=== PATIENT | female | born 1940 | race Caucasian/White ===

== ENCOUNTER 2016-10-30 09:12 | Emergency (ER) | payer MEDICARE ==
[~2016-10-30] VITALS: Ht 160 cm; Wt 54.4 kg
[~2016-10-30 09:12] MED LIST: ROSU10TA PO
--- NOTE | 2016-10-30 09:17 | NUR ---
PRESENTS SELF TO ED FOR EVAL AND TREATMENT OF RIGHT ANKLE INSECT BITE. RIGHT ANKLE NOTED WITH BLISTER AND A SLIGHT REDNESS. PATIENT COMPLAINT OF 4/10 DISCOMFORT. REMAINS AFEBRILE. VSS
--- NOTE | 2016-10-30 09:30 | NUR ---
MD REYES AT BEDSIDE
[2016-10-30 09:40] VITALS: BP 144/76
--- NOTE | 2016-10-30 09:41 | NUR ---
Patient discharged to home in stable condition. Written and verbal after care instructions given. Patient verbalizes understanding of instruction.
== END 2016-10-30 09:50 | disposition home or self-care (01) ==
LOC: ER 09:14
DX: S90.561A Insect bite (nonvenomous), right ankle, initial encounter (principal); M79.89 Other specified soft tissue disorders; M25.571 Pain in right ankle and joints of right foot; R06.02 Shortness of breath; R11.0 Nausea; Z88.0 Allergy status to penicillin; W57.XXXA Bitten or stung by nonvenomous insect and other nonvenomous arthropods, initial encounter; Y93.89 Activity, other specified; Y92.89 Other specified places as the place of occurrence of the external cause; Y99.8 Other external cause status
CPT/HCPCS: A4606; Z7610